=== PATIENT | female | born 1940 | race Caucasian/White ===

== ENCOUNTER → 2016-08-11 | Outpatient (CLI) | payer MEDICARE, BC ==
--- NOTE | 2016-08-12 07:46 | US ---
EXAMINATION TYPE: US carotid duplex BILAT DATE OF EXAM: 08/11/2016 COMPARISON: NONE CLINICAL HISTORY: Carotid Bruit R09.89. Bruit, pt has no complaints at this time EXAM MEASUREMENTS: RIGHT: Peak Systolic Velocity (PSV) cm/sec ----- Right CCA: 60.9 ----- Right ICA: 68.6 ----- Right ECA: 108.2 ICA/CCA ratio: 1.1 RIGHT: End Diastole cm/sec ----- Right CCA: 16.1 ----- Right ICA: 20.6 ----- Right ECA: 8.5 LEFT: Peak Systolic Velocity (PSV) cm/sec ----- Left CCA: 88.6 ----- Left ICA: 196.6 ----- Left ECA: 75.4 ICA/CCA ratio: 2.2 LEFT: End Diastole cm/sec ----- Left CCA: 24.8 ----- Left ICA: 40.9 ----- Left ECA: 10.6 VERTEBRALS (direction of flow): Right Vertebral: Antegrade Left Vertebral: Antegrade Heterogeneous plaque bilaterally, more on left with significant elevated velocities on left IMPRESSION: 50-69% BY DIAMETER STENOSIS OF THE PROXIMAL LEFT ICA. Criteria for Assigning % of Stenosis / Diameter reduction (Estimation based on the indirect measurements of the internal carotid artery velocities (ICA PSV). 1. Normal (no stenosis)=ICA PSV < 125 cm/s: ratio < 2.0: ICA EDV<40 cm/s. 2. Less than 50% stenosis=ICA PSV < 125 cm/s: ratio < 2.0: ICA EDV<40 cm/s. 3. 50 to 69% stenosis=ICA PSV of 125 to 230 cm/s: ration 2.0 ? 4.0: ICA EDV 40-100 cm/s. 4. Greater than 70% stenosis to near occlusion= ICA PSV > 230 cm/s: ratio > 4.0: ICA EDV > 100 cm/s. 5. Near occlusion= ICA PSV velocities may be low or undetectable: variable ratio and ICA EDV. 6. Total occlusion=unable to detect flow.
== END | disposition home or self-care (01) ==
LOC: RADUSWWP 16:03
PROVIDERS: ATTEND Family Medicine
DX: I65.22 Occlusion and stenosis of left carotid artery (principal)
CPT/HCPCS: 93880

== ENCOUNTER 2018-09-15 06:30 | Day surgery (SDC) | payer MEDICARE, BC ==
[2018-09-12 14:34] VITALS: BMI 19.3
[2018-09-15] MEDS ORDERED: SODIUM CHLORIDE 0.9% 1,000 ML in EMPTY BAG 1 BAG IV ONE (06:34)
[2018-09-15 07:07] VITALS: PULSE 83; TEMP 97.8
[2018-09-15 07:40] LABS: Basophils % (A) 1 %; Eosinophils # (A) 0.1 k/uL (0-0.7); Eosinophils % (A) 3 %; HCT 41.9 % (34.0-46.0); HGB 13.7 gm/dL (11.4-16.0); Lymphocytes # (A) 1.1 k/uL (1.0-4.8); Lymphocytes % (A) 25 %; MCH 30.8 pg (25.0-35.0); MCHC 32.7 g/dL (31.0-37.0); MCV 94.3 fL (80.0-100.0); Mean Platelet Volume 7.2; Monocytes # (A) 0.3 k/uL (0-1.0); Monocytes % (A) 7 %; Neutrophils # (A) 2.6 k/uL (1.3-7.7); Neutrophils % (A) 61 %; Platelet Count 268 k/uL (150-450); RBC 4.44 m/uL (3.80-5.40); RDW 14.3 % (11.5-15.5)
[2018-09-15] MEDS ORDERED: IV FLUID CONTINUATION 950 ML IV ONE (07:49)
[2018-09-15 08:08] LABS: Calcium 8.8 mg/dL (8.4-10.2)
[2018-09-15] MEDS ORDERED: MIDAZOLAM (PF) 2 MG/2 ML VIAL IV ONE (08:15)
[2018-09-15] MEDS ORDERED: LIDOCAINE 1% INJ 10MG/ML (20 ML MDV) SQ ONE (08:20)
[2018-09-15] MEDS ORDERED: IOPAMIDOL-250 100ML BTL IV ONE (08:28)
[2018-09-15] MEDS ORDERED: SODIUM CHLORIDE 0.9% 1,000 ML IV SCH (08:45)
--- NOTE | 2018-09-15 09:22 | IR ---
EXAMINATION TYPE: IR angio abdominal w runoff DATE OF EXAM: 09/15/2018 CLINICAL HISTORY: Peripheral vascular disease TECHNIQUE: Fluoroscopy. COMPARISON: None. FINDINGS: Fluoroscopic guidance was provided during abdominal angiogram with bilateral lower extremi ty runoff procedure performed by Dr. Lai. A total of 1.2 minutes of fluoroscopic time was utilized during the procedure and multiple cine images was acquired. Images acquired show metallic hardware fr om bilateral hip arthroplasty and extensive surgical change in the lumbar spine and lumbosacral junct ion. There is a right groin vascular access with subsequent angiogram and lower extremity runoff. IMPRESSION: As Above.
--- NOTE | 2018-09-15 10:04 | LTR ---
September 15, 2018 Re: Angela Lozano Dear Dr. Garg: Ms. Angela Lozano underwent today an aortogram with runoff and that revealed severe disease involving the femoral artery bilaterally. She will be scheduled to undergo a PRODUCTION LABORER of both SFA. I want to thank you for allowing me to participate in her care and please do not hesitate to call if you have any questions or concerns. Sincerely, MD MARLI Schwartz / SULY: [id number] /
--- NOTE | 2018-09-15 10:49 | AN ---
ANGIOGRAPHY REPORT DATE OF SERVICE: 09/15/2018. PERFORMING PHYSICIAN: Bridger Lai MD, Center Manager. PROCEDURE PERFORMED: 1. An abdominal aortogram. 2. Bilateral lower extremities runoff. INDICATION: This is a very pleasant 78-year-old female patient with hypertension and dyslipidemia and history of smoking, who was experiencing bilateral lower extremities intermittent claudication, worse on the right side. She underwent an arterial duplex study which revealed severe disease involving the right SFA. Because of that, she was referred for further cardiac evaluation and aortogram with runoff. APPROACH: Right common femoral artery. COMPLICATION: None. LEVEL OF SEDATION: Moderate with sedation length of 13 minutes. PROCEDURE DESCRIPTION: After obtaining an informed consent, the patient was brought to the cardiac earthmoving labourer. The right common femoral artery was cannulated using micropuncture technique, the micropuncture wire passed easily. Then I placed a 5-Albanian sheath in the right common femoral artery. After that, I did an abdominal aortogram and bilateral lower extremities runoff using 5-Albanian pigtail catheter which was initially placed at the level of the renal arteries, then it was pulled into above the bifurcation of the aorta to right and left common iliac arteries. The procedure was completed without any complication. SELECTIVE PERIPHERAL ANGIOGRAM: 1. The aorta appeared to be calcified with mild disease only. 2. Common iliac arteries are angiographically normal. 3. Internal iliac arteries are angiographically normal. 4. External iliac arteries are angiographically normal. 5. Profunda, both are patent. 6. SFA, both SFA appeared to be diseased. The right SFA has an area in the midportion appeared to be in the range of 90% to 95%. The left SFA has an area in the midportion as well, appeared to be in the range of 80%-85%. 7. Popliteal, both popliteal appeared to be angiographically normal. 8. Below the knee. On the right side, the tibioperoneal trunk has a lesion appeared to be in the range of 80% to 90%. and there is only one vessel runoff with posterior tibial. On the left side, the patient does have two vessel runoff with anterior tibial and peroneal with occluded posterior tibial artery. CONCLUSION: 1. 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 2. Severe disease involving the right tibioperoneal trunk as well. POSTPROCEDURE MANAGEMENT: The patient will be scheduled to have a PROCESSING ASSISTANT of the right SFA and right tibioperoneal trunk and subsequently PROCESSING ASSISTANT of the left SFA. MMODL / IJN: [id number] /
[2018-09-15 14:25] VITALS: BP 140/67; RESP 18
== END 2018-09-15 14:00 | disposition home or self-care (01) ==
LOC: CATHCVL 06:30
PROVIDERS: ATTEND Internal Medicine Interventional Cardiology
DX: I70.213 Atherosclerosis of native arteries of extremities with intermittent claudication, bilateral legs (principal); I10 Essential (primary) hypertension; E78.5 Hyperlipidemia, unspecified; F17.210 Nicotine dependence, cigarettes, uncomplicated; Z79.890 Hormone replacement therapy; Z79.899 Other long term (current) drug therapy
CPT/HCPCS: 36200; 75625; 75716; 80048; 85025; C1769 ×4; C1894; J2001; Q9966; J2250

== ENCOUNTER 2018-09-21 20:21 | Day surgery (SDC) | payer MEDICARE, BC ==
[2018-09-16 10:45] VITALS: BMI 19.3
[2018-09-21 16:16] LABS: Basophils % (A) 0 %; Eosinophils # (A) 0.2 k/uL (0-0.7); Eosinophils % (A) 3 %; HCT 36.8 % (34.0-46.0); HGB 11.8 gm/dL (11.4-16.0); Lymphocytes # (A) 1.3 k/uL (1.0-4.8); Lymphocytes % (A) 24 %; MCH 29.4 pg (25.0-35.0); MCHC 32.1 g/dL (31.0-37.0); MCV 91.6 fL (80.0-100.0); Mean Platelet Volume 8.1; Monocytes # (A) 0.3 k/uL (0-1.0); Monocytes % (A) 6 %; Neutrophils # (A) 3.5 k/uL (1.3-7.7); Neutrophils % (A) 64 %; Platelet Count 276 k/uL (150-450); RBC 4.02 m/uL (3.80-5.40); WBC 5.4 k/uL (3.8-10.6)
[2018-09-21 16:22] LABS: African American GFR (CKD) >90 (>60 ml/min/1.73 sqM); Anion Gap 8 mmol/L; Blood Urea Nitrogen 17 mg/dL (7-17); Calcium 8.7 mg/dL (8.4-10.2); Carbon Dioxide 27 mmol/L (22-30); Chloride 98 mmol/L (98-107); Glucose 84 mg/dL (74-99); Potassium 3.9 mmol/L (3.5-5.1); Sodium 133 mmol/L (137-145)
--- NOTE | 2018-09-21 19:51 | LTR ---
September 21, 2018 To: Dr. Celso Garg Re: Angela Lozano (44) Dear Dr. Garg, Ms. Angela Lozano underwent successful balloon angioplasty of the right leg. I want to thank you for allowing us to participate in her care, and please do not hesitate to call for question or concerns. Sincerely, MD MARLI Schwartz / SULY: [id number] /
--- NOTE | 2018-09-21 20:03 | PCN ---
PROCEDURE NOTE DATE OF SERVICE: 09/21/2018 PERFORMING PHYSICIAN: Bridger Lai MD, motors and generators inspector. PROCEDURES PERFORMED: 1. Selective right [id number] angiogram. 2. Selective right popliteal and SFA angiogram. 3. Intravascular ultrasound (IVUS) of the right posterior tibial, popliteal and SFA. 4. Successful balloon angioplasty of the right posterior tibial and tibioperoneal trunk. 5. Successful atherectomy of the right SFA using the directional atherectomy device, which was the HawkOne device. 6. Successful balloon angioplasty of the right SFA using a 6 x 120 mm drug-coated balloon with an excellent angiographic result. INDICATION: This is a 78-year-old female patient who sees Dr. Garg as an outpatient. She was referred to me for further evaluation of bilateral lower extremity intermittent claudication. She underwent a peripheral angiogram that revealed severe bilateral femoropopliteal disease. She was brought today to undergo PERMIT COORDINATOR of the right leg. APPROACH: Left common femoral artery. COMPLICATIONS: None. LEVEL OF SEDATION: Moderate, with sedation length of 1 hour and 6 minutes. PROCEDURE DESCRIPTION: After obtaining informed consent, the patient was brought to the cardiac laboratory aide. The left common femoral artery was cannulated using micropuncture technique. The micropuncture wire passed easily. Then I placed an 11 cm 6-Ku[place]i sheath in the left common femoral artery. At that point, anticoagulation was initiated using heparin and the patient was given 5000 units of heparin IV. I did select the right SFA using an 0.035 Aroda Advantage wire with the backup support of 5-Ku[place]i RIM catheter. After that I did exchange my short sheath for a 70 cm 6- Kuwaiti Raabe sheath where the sheath was positioned in the proximal right SFA. After that I did selective right qlgit-bax-bver angiogram, right popliteal and right SFA angiogram. The selective angiogram revealed critical disease involving the right posterior tibial artery as well as tibioperoneal trunk as well as the right SFA. I did intravascular ultrasound which confirmed that and gave me a diameter of the right posterior tibial of 3 mm, right tibioperoneal trunk of 4 mm, and right SFA of 6 mm. After that I did balloon angioplasty of the right posterior tibial and right tibioperoneal trunk using a 4 mm AngioSculpt balloon with the following angiogram showing excellent angiographic results. For the right SFA, I did atherectomy using the TurboHawk device and then I did balloon angioplasty using a 6 mm balloon with an excellent angiographic result, and the procedure was completed without any complication. After that I did exchange my long sheath for a short sheath using an 0.035 Aroda Advantage wire before I did selective left common femoral artery angiogram. The procedure was completed without any complication. POST-PROCEDURE MANAGEMENT: 1. Dual anti-platelet therapy. 2. Risk factor modifications. 3. Follow up with the patient. MMODL / IJN: [id number] /
[~2018-09-21 20:21] MED LIST: ALPRAZolam 0.25 MG TAB PO PRN; ASPIRIN 325 MG TAB PO STA; CLOPIDOGREL 75 MG TAB ONE; CLOPIDOGREL 75 MG TAB PO ONE; GABAPENTIN 300 MG CAP PO STA; HEPARIN SODIUM 1,000 UN/ML (10ML VL) IV ONE; HYDROcodone/APAP 10-325MG 1 EACH TAB ONE; HYDROmorphone 1 MG/ML 1 ML SYRINGE IVP ONE; IOPAMIDOL-250 100ML BTL INTRAARTER ONE; LIDOCAINE 1% INJ 10MG/ML (10 ML MDV) SQ ONE; MIDAZOLAM (PF) 2 MG/2 ML VIAL IVP ONE; SODIUM CHLORIDE 0.9% 1,000 ML IV SCH; SODIUM CHLORIDE 0.9% 1,000 ML in EMPTY BAG 1 BAG IV ONE; fentaNYL (PF) 50 MCG/ML 2 ML AMP IVP ONE
[2018-09-21] MEDS ORDERED: LISINOPRIL 10 MG TAB PO SCH (21:00)
[2018-09-21] MEDS ORDERED: ASCORBIC ACID 500 MG TAB PO SCH (21:00)
[2018-09-21] MEDS ORDERED: NON-FORMULARY DRUG (Prevagen 1 TAB) PO SCH (21:00)
[2018-09-21] MEDS ORDERED: MELOXICAM 7.5 MG TAB PO SCH (21:00)
[2018-09-21] MEDS ORDERED: LEVOTHYROXINE 100 MCG TAB PO SCH (21:00)
[2018-09-21] MEDS ORDERED: LEVOTHYROXINE 75 MCG TAB PO SCH (21:00)
[2018-09-21] MEDS ORDERED: PANTOPRAZOLE 40 MG TABLET PO SCH (21:00)
[2018-09-21] MEDS ORDERED: VITAMIN E (DL,TOCOPHERYL ACET) 400 UNIT CAP PO SCH (21:00)
[2018-09-21] MEDS ORDERED: ATORVASTATIN 20 MG TAB PO SCH (21:00)
[2018-09-21] MEDS: HYDROcodone/APAP 10-325MG 1 EACH TAB PO PRN (21:34)
[2018-09-21] MEDS ORDERED: CYCLOBENZAPRINE 10 MG TAB PO PRN (22:00)
[2018-09-22 03:38] VITALS: RESP 18
[2018-09-22] MEDS: HYDROcodone/APAP 10-325MG 1 EACH TAB PO PRN (04:49)
[2018-09-22 05:59] LABS: Basophils # (A) 0.1 k/uL (0-0.2); Basophils % (A) 1 %; Eosinophils # (A) 0.2 k/uL (0-0.7); Eosinophils % (A) 2 %; HCT 37.8 % (34.0-46.0); Lymphocytes # (A) 0.8 k/uL (1.0-4.8); Lymphocytes % (A) 11 %; MCH 29.8 pg (25.0-35.0); MCHC 31.8 g/dL (31.0-37.0); MCV 93.6 fL (80.0-100.0); Mean Platelet Volume 6.8; Monocytes # (A) 0.5 k/uL (0-1.0); Monocytes % (A) 6 %; Neutrophils # (A) 5.7 k/uL (1.3-7.7); Neutrophils % (A) 78 %; Platelet Count 322 k/uL (150-450); RBC 4.04 m/uL (3.80-5.40); RDW 13.2 % (11.5-15.5); WBC 7.4 k/uL (3.8-10.6)
[2018-09-22 06:08] LABS: African American GFR (CKD) >90 (>60 ml/min/1.73 sqM); Anion Gap 7 mmol/L; Blood Urea Nitrogen 21 mg/dL (7-17); Calcium 8.5 mg/dL (8.4-10.2); Carbon Dioxide 25 mmol/L (22-30); Chloride 103 mmol/L (98-107); Glucose 87 mg/dL (74-99); Potassium 4.6 mmol/L (3.5-5.1); Sodium 135 mmol/L (137-145)
--- NOTE | 2018-09-22 08:29 | IR ---
Fluoroscopy HISTORY: Pain in leg 11.8 minutes fluoroscopy time supplied to the referring clinician. 228 intraoperative C-arm images d ocument the procedure. See dictated report from cardiology.
[2018-09-22 08:37] VITALS: BP 152/68; PULSE 75; TEMP 97.5
[2018-09-22] MEDS ORDERED: ASPIRIN 325 MG TAB PO SCH (09:00)
[2018-09-22] MEDS ORDERED: CLOPIDOGREL 75 MG TAB PO SCH (09:00)
[2018-09-22] MEDS ORDERED: traMADol 50 MG TAB PO SCH (09:00)
--- NOTE | 2018-09-22 09:00 | DS ---
DISCHARGE SUMMARY ADMISSION DATE: September 21, 2018. DISCHARGE DATE: September 22, 2018 BRIEF HISTORY: This is a pleasant 78-year-old female patient who underwent yesterday successful balloon angioplasty of the right tibioperoneal trunk, right posterior tibial, and right SFA from a left groin approach. The procedure was completed without any complication. On followup with her today, she is doing good. She has great pulse in the right foot. The left groin is soft with mild tenderness and without any bruises. The patient is going to be discharged home on dual anti-platelet therapy and I will follow up with the patient next week in the office. MMODL / IJN: [id number] /
== END 2018-09-22 09:20 | disposition home or self-care (01) ==
LOC: CATHCVL 20:21 → 3SCARD 20:25 → CATHCVL 09-22 09:20
PROVIDERS: ATTEND Internal Medicine Interventional Cardiology
DX: I70.211 Atherosclerosis of native arteries of extremities with intermittent claudication, right leg (principal); Z72.0 Tobacco use; I10 Essential (primary) hypertension; M19.90 Unspecified osteoarthritis, unspecified site; M06.9 Rheumatoid arthritis, unspecified; Z79.890 Hormone replacement therapy; Z79.891 Long term (current) use of opiate analgesic; Z79.899 Other long term (current) drug therapy
CPT/HCPCS: 37225; 37228; 37252; 37253; 80048 ×2; 85025 ×2; C1894 ×2; C1725 ×2; C1769 ×4; C1887; C1714; C1753; C2623; C1760; J3010; J1644; J1170; J2001; Q9966; J2250; 37232

== ENCOUNTER 2018-10-26 07:33 | Day surgery (SDC) | payer MEDICARE, BC ==
[~2018-10-26 07:33] MED LIST changes: -ALPRAZolam 0.25 MG TAB PO PRN; +ASPIRIN 325 MG TAB PO ONE; -ASPIRIN 325 MG TAB PO STA; -CLOPIDOGREL 75 MG TAB ONE; -CLOPIDOGREL 75 MG TAB PO ONE; -GABAPENTIN 300 MG CAP PO STA; -HEPARIN SODIUM 1,000 UN/ML (10ML VL) IV ONE; -HYDROcodone/APAP 10-325MG 1 EACH TAB ONE; -HYDROmorphone 1 MG/ML 1 ML SYRINGE IVP ONE; -IOPAMIDOL-250 100ML BTL INTRAARTER ONE; -LIDOCAINE 1% INJ 10MG/ML (10 ML MDV) SQ ONE; -MIDAZOLAM (PF) 2 MG/2 ML VIAL IVP ONE; -SODIUM CHLORIDE 0.9% 1,000 ML IV SCH; -fentaNYL (PF) 50 MCG/ML 2 ML AMP IVP ONE
[2018-10-26 08:16] LABS: Basophils # (A) 0.1 k/uL (0-0.2); Basophils % (A) 1 %; Eosinophils # (A) 0.3 k/uL (0-0.7); Eosinophils % (A) 3 %; HCT 38.8 % (34.0-46.0); HGB 12.4 gm/dL (11.4-16.0); Lymphocytes # (A) 0.9 k/uL (1.0-4.8); Lymphocytes % (A) 13 %; MCHC 32.1 g/dL (31.0-37.0); MCV 93.4 fL (80.0-100.0); Mean Platelet Volume 7.1; Monocytes # (A) 0.5 k/uL (0-1.0); Monocytes % (A) 6 %; Neutrophils # (A) 5.6 k/uL (1.3-7.7); Neutrophils % (A) 75 %; Platelet Count 328 k/uL (150-450); RBC 4.15 m/uL (3.80-5.40); RDW 13.3 % (11.5-15.5); WBC 7.4 k/uL (3.8-10.6)
[2018-10-26] MEDS ORDERED: SODIUM CHLORIDE 0.9% 1,000 ML IV ONE (08:25)
[2018-10-26 08:26] LABS: Potassium 4.4 mmol/L (3.5-5.1)
[2018-10-26] MEDS ORDERED: SODIUM CHLORIDE 0.9% 500 ML 500 ML with niCARdipine 6.25 MG, NITROGLYCERIN-D5W PMX 0.05... IV ONE ×4 (08:55)
[2018-10-26] MEDS ORDERED: MIDAZOLAM (PF) 2 MG/2 ML VIAL IVP ONE ×2 (09:25→10:24)
[2018-10-26] MEDS: LIDOCAINE 1% INJ 10MG/ML (20 ML MDV) SQ ONE ×3 (09:29→09:37)
[2018-10-26] MEDS: fentaNYL (PF) 50 MCG/ML 2 ML AMP IV ONE ×3 (09:33→10:24)
[2018-10-26] MEDS ORDERED: LIDOCAINE 1% INJ 10MG/ML (20 ML MDV) SQ ONE (09:38)
[2018-10-26] MEDS ORDERED: HYDROmorphone 1 MG/ML 1 ML SYRINGE IVP ONE (09:38)
[2018-10-26] MEDS: HEPARIN SODIUM 1,000 UN/ML (10ML VL) IV ONE ×2 (09:48→09:51)
[2018-10-26] MEDS ORDERED: CYCLOBENZAPRINE 10 MG TAB PO PRN (10:41)
[2018-10-26] MEDS ORDERED: HYDROcodone/APAP 10-325MG 1 EACH TAB PO PRN (10:41)
[2018-10-26] MEDS ORDERED: CLOPIDOGREL 75 MG TAB PO ONE (10:42)
[2018-10-26] MEDS ORDERED: IOPAMIDOL-250 100ML BTL INTRAARTER ONE (10:43)
[2018-10-26] MEDS ORDERED: SODIUM CHLORIDE 0.9% 1,000 ML IV SCH (10:45)
--- NOTE | 2018-10-26 11:10 | LTR ---
October 26, 2018 Re: Angela Lozano Dear Dr. Garg: Ms. Angela Lozano underwent today successful atherectomy and balloon angioplasty of the left femoral artery with an excellent angiographic result and without any complication. I want to thank you for allowing me to participate in her care and please do not hesitate to call for questions or concerns. Sincerely, Bridger Lai MD MMCRYSTALL / MALORIEN: [id number] /
--- NOTE | 2018-10-26 11:22 | AN ---
ANGIOGRAPHY REPORT DATE OF SERVICE: October 26, 2018 PERFORMING PHYSICIAN: Bridger Lai MD, retail bakery manager. PROCEDURE PERFORMED: 1. Selective left anterior tibial, popliteal, and SFA angiogram. 2. Intravascular ultrasound, IVUS, of the left SFA. 3. Atherectomy of the left SFA. 4. Successful balloon angioplasty and stenting of the left SFA using 6 x 120 Zilver PTX with excellent angiographic results and reduction of stenosis from 80% to 0%. INDICATION: This is a 78-year-old female patient who was experiencing bilateral lower extremities intermittent claudication and underwent a peripheral angiogram which showed bilateral femoral-popliteal disease, which she underwent RECEPTIONIST SECRETARY of the right leg and she was brought today to undergo a RECEPTIONIST SECRETARY of the left leg. COMPLICATION: None. LEVEL OF SEDATION: Moderate with sedation length of 66 minutes. APPROACH: Left anterior tibial artery in ipsilateral retrograde approach. PROCEDURE DESCRIPTION: After obtaining an informed consent, the patient was brought to cardiac labelling machine operator. The left anterior tibial artery was cannulated using micropuncture technique under ultrasound guidance, the micropuncture wire passed easily. Then I did place a slender 6/5-Azeri sheath. I did after that start the cocktail infusion using heparin, verapamil, and nitroglycerin. After that, the patient was given 6000 units of heparin IV. I did selective left anterior tibial and left popliteal/SFA angiogram with injection through the sheath. After that I did cross the lesion using 0.[address] wire. I did exchange my wire into 0.014 ViperWire preparing for rotational atherectomy. After that I did intravascular ultrasound of the lesion which revealed a vessel diameter of 6 mm. I did after that balloon angioplasty using 5 mm balloon and then 6 mm balloon with inadequate angiographic results. Because of that I decided to cover the lesion with a stent so I deployed 6 x 120 mm Zilver PTX drug-coated stent where the stent was positioned under fluoroscopy guidance and deployed under fluoroscopy guidance. I post dilated the stent using 6 mm balloon. The following angiogram showed great results and the procedure was completed without any complication. POSTPROCEDURE MANAGEMENT: 1. Dual antiplatelet therapy. 2. Risk factors modifications. 3. Follow up with the patient. MMODL / IJN: [id number] /
[2018-10-26 15:58] VITALS: BMI 18.7
[2018-10-26] MEDS ORDERED: VITAMIN E (DL,TOCOPHERYL ACET) 400 UNIT CAP PO SCH (21:00)
[2018-10-26] MEDS ORDERED: NON-FORMULARY DRUG (Prevagen 1 TAB) PO SCH (21:00)
[2018-10-26] MEDS ORDERED: ASCORBIC ACID 500 MG TAB PO SCH (21:00)
[2018-10-26] MEDS ORDERED: rOPINIRole HCL 4 MG TABLET PO SCH (21:00)
[2018-10-26] MEDS ORDERED: PANTOPRAZOLE 40 MG TABLET PO SCH (21:00)
[2018-10-26] MEDS ORDERED: ROPINIROLE HCL 5 MG PO SCH (21:00)
[2018-10-26] MEDS ORDERED: ATORVASTATIN 20 MG TAB PO SCH (21:00)
[2018-10-26] MEDS ORDERED: MELOXICAM 7.5 MG TAB PO SCH (21:00)
[2018-10-26] MEDS ORDERED: LISINOPRIL 10 MG TAB PO SCH (21:00)
[2018-10-27] MEDS ORDERED: LEVOTHYROXINE 88 MCG TAB PO SCH (06:30)
[2018-10-27 07:31] LABS: African American GFR (CKD) >90 (>60 ml/min/1.73 sqM); Anion Gap 7 mmol/L; Blood Urea Nitrogen 13 mg/dL (7-17); Calcium 8.8 mg/dL (8.4-10.2); Carbon Dioxide 29 mmol/L (22-30); Chloride 100 mmol/L (98-107); Glucose 79 mg/dL (74-99); Potassium 4.7 mmol/L (3.5-5.1); Sodium 136 mmol/L (137-145)
[2018-10-27 07:59] VITALS: BP 166/79; RESP 15; TEMP 97.9
[2018-10-27 08:14] VITALS: PULSE 82
[2018-10-27 08:21] LABS: Basophils # (A) 0.1 k/uL (0-0.2); Basophils % (A) 1 %; Eosinophils # (A) 0.3 k/uL (0-0.7); Eosinophils % (A) 4 %; HCT 37.4 % (34.0-46.0); HGB 12.1 gm/dL (11.4-16.0); Lymphocytes # (A) 1.2 k/uL (1.0-4.8); Lymphocytes % (A) 16 %; MCH 31.2 pg (25.0-35.0); MCHC 32.4 g/dL (31.0-37.0); MCV 96.3 fL (80.0-100.0); Monocytes # (A) 0.4 k/uL (0-1.0); Monocytes % (A) 5 %; Neutrophils # (A) 5.6 k/uL (1.3-7.7); Neutrophils % (A) 73 %; Platelet Count 310 k/uL (150-450); RBC 3.89 m/uL (3.80-5.40); WBC 7.6 k/uL (3.8-10.6)
[2018-10-27] MEDS ORDERED: traMADol 50 MG TAB PO SCH (09:00)
[2018-10-27] MEDS ORDERED: ASPIRIN 325 MG TAB PO SCH (09:00)
[2018-10-27] MEDS ORDERED: CLOPIDOGREL 75 MG TAB PO SCH (09:00)
--- NOTE | 2018-10-28 00:20 | DS ---
DISCHARGE SUMMARY ADMISSION DATE: October 26, 2018. DISCHARGE DATE: October 27, 2018 BRIEF HISTORY: This is a very pleasant 78-year-old female patient who was admitted to the hospital yesterday and underwent successful atherectomy and balloon angioplasty of the left SFA with good angiographic results and without any complication from a left pedal approach. On followup with the patient today, she is asymptomatic. She does have a great left dorsalis pedis pulse. The patient is going to be discharged home on dual anti-platelet therapy and I will follow up with the patient next week in the office. MMCRYSTALL / IJN: [id number] /
--- NOTE | 2018-10-28 15:19 | IR ---
EXAMINATION TYPE: IR stent intravas non coronary DATE OF EXAM: 10/26/2018 COMPARISON: NONE HISTORY: Fluoroscopy time. Fluoroscopy was provided to the referring clinician. 12 minutes of fluoroscopy provided.
== END 2018-10-27 09:25 | disposition home or self-care (01) ==
LOC: CATHCVL 07:33 → 3SCARD 10:50 → CATHCVL 10-27 09:25
PROVIDERS: ATTEND Internal Medicine Interventional Cardiology
DX: I70.212 Atherosclerosis of native arteries of extremities with intermittent claudication, left leg (principal); I10 Essential (primary) hypertension; Z95.820 Peripheral vascular angioplasty status with implants and grafts; I70.201 Unspecified atherosclerosis of native arteries of extremities, right leg; Z87.891 Personal history of nicotine dependence; Z79.02 Long term (current) use of antithrombotics/antiplatelets; Z79.82 Long term (current) use of aspirin; Z79.890 Hormone replacement therapy; Z79.899 Other long term (current) drug therapy
CPT/HCPCS: 37227; 37252; 80048 ×2; 85025 ×2; C1894; C1769 ×3; C1714; C1753; C2623; C1874; C1725; J1644 ×2; J2001; J3010; J1170; Q9966; J2250